=== PATIENT | female | born 1985 | race Caucasian/White ===

== ENCOUNTER 2018-04-03 07:08 | Emergency (ER) | payer MEDICAID ==
--- NOTE | 2018-04-03 07:40 | ED Physician Documentation ---
PD HPI FEMALE - Stated complaint Stated Complaint: SIDE PX - Chief complaint Chief Complaint: Abd Pain - History obtained from History obtained from: Patient, Family - History of Present Illness Timing - onset: How many days ago (7) Timing - duration: Days (7) Timing - details: Gradual onset, Still present Associated symptoms: Back pain, Dysuria, Urinary frequency Similar symptoms before: Diagnosis (pyelo) Recently seen: Not recently seen - Additional information Additional information: 32-year-old female who is recently moved here from [place] has developed urinary urgency frequency and dysuria over the past week. She has been drinking extra fluids in attempt to resolve an infection and despite this she is now developed flank pain and nausea similar to what she has had previously when she has had a kidney infection. Review of Systems Constitutional: denies: Fever Eyes: denies: Decreased vision Ears: denies: Ear pain Nose: denies: Congestion Throat: denies: Sore throat Cardiac: denies: Chest pain / pressure, Palpitations Respiratory: denies: Dyspnea, Cough GI: reports: Nausea. denies: Abdominal Pain, Vomiting, Constipation, Diarrhea : reports: Dysuria, Frequency Skin: denies: Rash Musculoskeletal: reports: Back pain. denies: Neck pain, Extremity pain PD PAST MEDICAL HISTORY - Present Medications Home Medications: Ambulatory Orders Medication Instructions Recorded Confirmed Fluconazole [Diflucan] 150 mg PO ONCE #1 tablet 04/03/18 HYDROcod/ACETAM 5/325 [Council 5/325] 1 - 2 ea PO Q6H PRN #15 tablet 04/03/18 Sulfamethoxazole/Trimethoprim 1 each PO BID #14 tablet 04/03/18 [Sulfamethoxazole-Tmp Ds Tablet] - Allergies Allergies/Adverse Reactions: Allergies Allergy/AdvReac Type Severity Reaction Status Date / Time amoxicillin Allergy Unknown Verified 04/03/18 07:21 PD ED PE NORMAL - Vitals Vital signs reviewed: Yes (hypertensive ) - General General: Alert and oriented X 3, No acute distress, Well developed/nourished - HEENT HEENT: Atraumatic, PERRL, EOMI - Neck Neck: Supple, no meningeal sign - Cardiac Cardiac: RRR, No murmur - Respiratory Respiratory: No respiratory distress, Clear bilaterally - Abdomen Abdomen: Soft, Other (mild LUQ pain ) - Back Back: No spinal TTP, Other (bilateral CVA tenderness worse on the left. ) - Derm Derm: Normal color, Warm and dry, No rash - Extremities Extremities: No deformity, No edema - Neuro Neuro: Alert and oriented X 3, research associate 2-12 intact, No motor deficit, No sensory deficit, Normal speech Eye Opening: Spontaneous Motor: Obeys Commands Verbal: Oriented GCS Score: 15 - Psych Psych: Normal mood, Normal affect Results - Vitals Vitals: Vital Signs - 24 hr 04/03/18 07:22 Temperature 36.7 C Heart Rate 96 Respiratory 12 Rate Blood Pressure 140/88 H O2 Saturation 98 Oxygen O2 Source Room air - Labs Labs: Laboratory Tests 04/03/18 04/03/18 07:20 07:20 Urine Color YELLOW Urine Clarity HAZY Urine pH 6.5 Ur Specific [place] 1.015 1.015 Urine Protein 30 H Urine Glucose (UA) NEGATIVE Urine Ketones NEGATIVE Urine Occult Blood LARGE H Urine Nitrite NEGATIVE Urine Bilirubin NEGATIVE Urine Urobilinogen 0.2 (NORMAL) Ur Leukocyte Esterase MODERATE H Urine RBC TNTC H Urine WBC >25 H Urine WBC Clumps PRESENT Ur Squamous Epith Cells RARE Squamous Urine Bacteria Few Urine Yeast PRESENT Ur Microscopic Review INDICATED Urine Culture Comments INDICATED Urine HCG, Qual NEGATIVE PD MEDICAL DECISION MAKING - ED course Complexity details: reviewed results, re-evaluated patient, considered differential, d/w patient, d/w family ED course: 32 y/o female with flank pain and nausea for 3 days has UTI and she is given IM rocephin and toradal. - Sepsis Event Vital Signs: Vital Signs - 24 hr 04/03/18 07:22 Temperature 36.7 C Heart Rate 96 Respiratory 12 Rate Blood Pressure 140/88 H O2 Saturation 98 Oxygen O2 Source Room air Departure - Departure Disposition: 01 Home, Self Care Clinical Impression: Pyelonephritis, Yeast infection Instructions: ED Kidney Infec Female, ED Vaginal Infec Fungal Kimber[place] Follow-Up: [facility] [Provider Group] Prescriptions: Fluconazole [Diflucan] 150 mg PO ONCE #1 tablet HYDROcod/ACETAM 5/325 [Council 5/325] 1 - 2 ea PO Q6H PRN #15 tablet PRN Reason: Pain Sulfamethoxazole/Trimethoprim [Sulfamethoxazole-Tmp Ds Tablet] 1 each PO BID # 14 tablet Forms: Activity restrictions
[2018-04-03 07:42] LABS: BILIRUBIN,URINE NEGATIVE (NEGATIVE); GLUCOSE, URINE (UA) NEGATIVE (NEGATIVE); KETONES,URINE (UA) NEGATIVE (NEGATIVE); LEUKOCYTE ESTERASE, URINE MODERATE (NEGATIVE); NITRITE,URINE NEGATIVE (NEGATIVE); OCCULT BLOOD,URINE LARGE (NEGATIVE); PH,URINE 6.5 PH (5.0-7.5); PROTEIN,URINE 30 mg/dL (NEGATIVE); UROBILINOGEN,URINE 0.2 (NORMAL) E.U./dL (NORMAL)
[2018-04-03 07:46] LABS: CLARITY,URINE HAZY (CLEAR)
[2018-04-03 07:47] LABS: HCG UR QUAL NEGATIVE
[2018-04-03] MEDS ORDERED: KETOROLAC 60 MG/2 ML VIAL IM STA (07:56)
[2018-04-03] MEDS ORDERED: cefTRIAXone 1 GM VIAL IM STA (07:56)
[2018-04-03] MEDS ORDERED: LIDOCAINE 1% 2 ML VIAL SUBQ ONE (07:56)
[2018-04-03 08:05] LABS: BACTERIA,URINE Few /HPF (None Seen); RBC,URINE TNTC /HPF (0-5); SQUAMOUS EPITHELIAL CELL,UR RARE Squamous (<= Few); WBC CLUMPS,URINE PRESENT; YEAST,URINE PRESENT
[2018-04-03 08:44] VITALS: BP 137/75
== END 2018-04-03 08:42 | disposition home or self-care (01) ==
LOC: ED 07:08
DX: N12 Tubulo-interstitial nephritis, not specified as acute or chronic (principal); B37.9 Candidiasis, unspecified
CPT/HCPCS: 81001; 81003; 81025; 87086; 96372; 99283

== ENCOUNTER 2018-04-14 09:18 | Outpatient (CLI) | payer MEDICAID ==
[2018-04-14 12:49] LABS: BASOPHILS % (AUTO) 0.6 %; EOSINOPHILS # (AUTO) 0.2 10^3/uL (0.0-0.7); EOSINOPHILS % (AUTO) 2.2 %; HGB - HEMOGLOBIN 13.6 g/dL (12.0-16.0); LYMPHOCYTES # (AUTO) 2.9 10^3/uL (1.5-3.5); LYMPHOCYTES % (AUTO) 36.6 %; MEAN CORPUSCULAR HEMOGLOBIN 29.6 pg (27.0-31.0); MEAN CORPUSCULAR HGB CONC 34.3 g/dL (32.0-36.0); MEAN CORPUSCULAR VOLUME 86.4 fL (81.0-99.0); MEAN PLATELET VOLUME 9.6 fL (7.9-10.8); MONOCYTES # (AUTO) 0.3 10^3/uL (0.0-1.0); MONOCYTES % (AUTO) 4.3 %; NEUTROPHILS # (AUTO) 4.5 10^3/uL (1.5-6.6); NEUTROPHILS % (AUTO) 56.3 %; PLT - PLATELET COUNT 258 10^3/uL (130-450); RED BLOOD COUNT 4.61 10^6/uL (4.20-5.40); RED CELL DISTRIBUTION WIDTH 13.5 % (12.0-15.0)
[2018-04-14 12:52] LABS: ALBUMIN 4.4 g/dL (3.2-5.5); ALBUMIN/GLOBULIN RATIO 1.3 (1.0-2.2); BILIRUBIN,TOTAL 0.8 mg/dL (0.2-1.0); CREATININE 0.7 mg/dL (0.4-1.0); TOTAL PROTEIN 7.7 g/dL (6.7-8.2)
[2018-04-14 13:28] LABS: HB2 TOTAL 14.8 g/dL; HEMOGLOBIN A1C 0.85 g/dL; HEMOGLOBIN A1C % 7.4 % (4.6-6.2)
== END 2018-04-14 09:19 | disposition home or self-care (01) ==
LOC: LAB.N 09:18
PROVIDERS: ATTEND Physician Assistant Medical
DX: E11.9 Type 2 diabetes mellitus without complications (principal)
CPT/HCPCS: 36415; 80050; 83036

== ENCOUNTER 2018-07-20 08:07 | Outpatient (CLI) | payer MEDICAID ==
[2018-07-20 19:33] LABS: HB2 TOTAL 14.5 g/dL; HEMOGLOBIN A1C 0.71 g/dL; HEMOGLOBIN A1C % 6.6 % (4.6-6.2)
== END 2018-07-20 23:59 | disposition home or self-care (01) ==
LOC: LAB.N 08:07
PROVIDERS: ATTEND Physician Assistant Medical
DX: E11.9 Type 2 diabetes mellitus without complications (principal)
CPT/HCPCS: 36415; 83036

== ENCOUNTER 2018-08-18 10:25 | Outpatient (CLI) | payer MEDICAID ==
--- NOTE | 2018-08-18 13:08 | Mammography Report ---
Reason: BREAST PAIN, LEFT Procedure Date: 08/18/2018 Accession Number: [id number] / [id number] Procedure: LAURIE - Diagnostic Dig Bilat CPT Code: FULL RESULT: EXAM: Diagnostic Dig Bilat DATE: 08/18/2018 11:38 AM CLINICAL HISTORY: History of intermittent left breast pain mainly between 9:00 and 12:00. Diagnostic examination. TECHNIQUE: Bilateral CC and MLO views were obtained as well as a left laterally exaggerated CC view and a left ML view. Focused breast ultrasound was deployed. COMPARISON: None FINDINGS: The breasts demonstrate heterogeneously dense fibroglandular parenchyma bilaterally. The left breast is mammographically normal with no suspicious architectural distortion, calcifications or mass. In the right lateral breast posteriorly at the 9:00 position approximately 1 cm deep to the skin is a 8 mm partially obscured hypodense ovoid mass with calcifications. On focused breast ultrasound of the same area this appears as a wider than tall approximately 0.9 cm ovoid hypoechoic mass containing a calcification possibly with heterogeneous debris. There is the suggestion of a duct leading towards the skin surface though this is not definitively sonographically demonstrated. The finding probably represents a sebaceous cyst, probably benign. IMPRESSION: Probable benign findings RECOMMENDATION: Recommend diagnostic right breast ultrasound in 6 months. BIRADS CATEGORY 3 STANDARD QUALIFYING STATEMENTS: 1. This examination was not reviewed with the aid of Computer-Aided Detection (CAD). 2. A negative or benign imaging report should not delay biopsy if clinically suspicious findings are present. Consider surgical consultation if warrented. More than 5% of cancers are not identified by imaging. 3. Dense breasts may obscure an underlying neoplasm. 4. This examination was reviewed with the aid of 3D imaging (tomography).
== END 2018-08-18 10:26 | disposition home or self-care (01) ==
LOC: DI 10:25
PROVIDERS: ATTEND Physician Assistant Medical
DX: N64.4 Mastodynia (principal)
CPT/HCPCS: 76642; 77066

== ENCOUNTER 2018-09-22 11:15 | Emergency (ER) | payer MEDICAID ==
[2018-09-22] MEDS ORDERED: DEXAMETHASONE 10 MG/ML VIAL PO STA (13:09)
[2018-09-22] MEDS ORDERED: IBUPROFEN 800 MG TABLET PO STA (13:09)
[2018-09-22 14:15] VITALS: BP 138/96
--- NOTE | 2018-09-22 14:39 | ED Physician Documentation ---
PD HPI NECK PAIN - Stated complaint Stated Complaint: NECK/SHOULDER PAIN - Chief complaint Chief Complaint: Ext Problem - History obtained from History obtained from: Patient - History of Present Illness Timing - onset: Yesterday Timing - details: Still present Location: Lower, Left Quality: Pain, Spasm Similar symptoms before: Has not had sx before - Additional information Additional information: The patient is a 33-year-old female who presents with "a kink in my neck" with pain radiating to her left shoulder. Her symptoms started yesterday, and persisted today. She denies any recent traumatic injury. She denies headache, numbness or weakness, cough or shortness of breath. She denies history of similar symptoms in the past. She is right-hand dominant. Review of Systems Constitutional: denies: Fever Ears: denies: Tinnitus/ringing Nose: denies: Congestion Throat: denies: Sore throat Cardiac: denies: Chest pain / pressure Respiratory: denies: Dyspnea, Cough GI: denies: Abdominal Pain, Nausea, Vomiting : denies: Dysuria Skin: denies: Rash Musculoskeletal: reports: Neck pain. denies: Back pain Neurologic: denies: Focal weakness, Numbness, Headache PD PAST MEDICAL HISTORY - Past Medical History Past Medical History: No Respiratory: Asthma Endocrine/Autoimmune: Type 2 diabetes - Past Surgical History Past Surgical History: Yes /[employer]: Tubal ligation HEENT: Tonsil/Adenoidectomy - Present Medications Home Medications: Ambulatory Orders Medication Instructions Recorded Confirmed Fluconazole [Diflucan] 150 mg PO ONCE #1 tablet 04/03/18 HYDROcod/ACETAM 5/325 [[place] 5/325] 1 - 2 ea PO Q6H PRN #15 tablet 04/03/18 Sulfamethoxazole/Trimethoprim 1 each PO BID #14 tablet 04/03/18 [Sulfamethoxazole-Tmp Ds Tablet] Cyclobenzaprine [Flexeril] 10 mg PO TID PRN #20 tablet 09/22/18 Naproxen [Naprosyn] 500 mg PO BID #30 tablet 09/22/18 - Allergies Allergies/Adverse Reactions: Allergies Allergy/AdvReac Type Severity Reaction Status Date / Time amoxicillin Allergy Unknown Verified 09/22/18 11:34 - Social History Does the pt smoke?: No Smoking Status: Never smoker Does the pt drink ETOH?: No Does the pt have substance abuse?: Yes Substance Use and Type: Marijuana - Immunizations Immunizations are current?: Yes PD ED PE NORMAL - Vitals Vital signs reviewed: Yes (Initially hypertensive.) - General General: Alert and oriented X 3, Well developed/nourished, Other (Holding head stiffly.) - HEENT HEENT: Atraumatic, EOMI, Pharynx benign - Neck Neck: Supple, no meningeal sign, No bony TTP, No adenopathy, Other (There is tenderness to palpation along the paracervical musculature, particularly on the left. There is no tenderness to palpation along the spinous processes.) - Cardiac Cardiac: RRR - Respiratory Respiratory: No respiratory distress, Clear bilaterally - Abdomen Abdomen: Soft, Non tender - Back Back: No CVA TTP, No spinal TTP - Derm Derm: No rash - Extremities Extremities: No edema, No calf tenderness / cord - Neuro Neuro: Alert and oriented X 3, No motor deficit, No sensory deficit Results - Vitals Vitals: Oxygen O2 Source Room air PD MEDICAL DECISION MAKING - ED course Complexity details: re-evaluated patient, considered differential, d/w patient, d/w family ED course: The patient's presentation is most consistent with cervical muscle strain. Her presentation does not suggest meningitis or cervical spine injury. Treatment in the emergency department included administration of ibuprofen 800 mg orally and dexamethasone 10 mg orally. She is being discharged with prescriptions for Naprosyn and for Flexeril. I discussed with her and her family the expected course of illness, symptomatic treatment and outpatient follow-up, as well as potentially worrisome signs or symptoms that should prompt reevaluation in the emergency department. Departure - Departure Disposition: 01 Home, Self Care Clinical Impression: Cervical muscle strain Qualifiers: Encounter type: initial encounter Qualified Code(s): S16.1XXA - Strain of muscle, fascia and tendon at neck level, initial encounter Condition: Stable Instructions: ED Neck Pain No Trauma, ED Sprain Strain Neck Follow-Up: Gonzales Hernandez PA-C [Primary Care Provider] - Prescriptions: Cyclobenzaprine [Flexeril] 10 mg PO TID PRN #20 tablet PRN Reason: Spasms Naproxen [Naprosyn] 500 mg PO BID #30 tablet Comments: Apply ice pack to the sore areas intermittently for the next 3 days. You can use Naprosyn as prescribed if needed for pain. You can use Flexeril as prescribed if needed for muscle spasms. Let pain be your guide to activity level. Follow-up with your primary physician within 1-2 weeks. Return to the emergency department if you develop increasing pain, numbness or weakness, or otherwise worsening symptoms. Forms: Activity restrictions Discharge Date/Time: 09/22/18 15:20
== END 2018-09-22 15:20 | disposition home or self-care (01) ==
LOC: ED 11:15
DX: S16.1XXA Strain of muscle, fascia and tendon at neck level, initial encounter (principal); X58.XXXA Exposure to other specified factors, initial encounter; M25.512 Pain in left shoulder; E11.9 Type 2 diabetes mellitus without complications
CPT/HCPCS: 99283; A9270

== ENCOUNTER 2018-10-06 05:28 | Outpatient (CLI) | payer MEDICAID ==
[2018-10-06 19:29] LABS: BILIRUBIN,URINE NEGATIVE (NEGATIVE); GLUCOSE, URINE (UA) NEGATIVE (NEGATIVE); KETONES,URINE (UA) NEGATIVE (NEGATIVE); LEUKOCYTE ESTERASE, URINE NEGATIVE (NEGATIVE); NITRITE,URINE NEGATIVE (NEGATIVE); OCCULT BLOOD,URINE LARGE (NEGATIVE); PH,URINE 5.5 PH (5.0-7.5); PROTEIN,URINE NEGATIVE (NEGATIVE); UROBILINOGEN,URINE 0.2 (NORMAL) E.U./dL (NORMAL)
[2018-10-06 19:35] LABS: CLARITY,URINE CLEAR (CLEAR)
[2018-10-06 19:36] LABS: BACTERIA,URINE None Seen /HPF (None Seen); RBC,URINE 0-5 /HPF (0-5); SQUAMOUS EPITHELIAL CELL,UR MANY Squamous (<= Few)
== END 2018-10-06 23:59 ==
LOC: LAB.R 05:28
PROVIDERS: ATTEND Nurse Practitioner
DX: R30.0 Dysuria (principal)
CPT/HCPCS: 81001; 87086

== ENCOUNTER 2018-11-24 10:23 | Outpatient (CLI) | payer MEDICAID ==
--- NOTE | 2018-11-24 13:41 | Ultrasound Report ---
Reason: BREAST PAIN, LEFT Procedure Date: 11/24/2018 Accession Number: [id number] / [id number] Procedure: US - Breast Unilateral Limited CPT Code: FULL RESULT: EXAM: Breast Unilateral Limited DATE: 11/24/2018 11:45 AM CLINICAL HISTORY: BREAST PAIN, LEFT. Pain intermittently involves different areas of the breast. COMPARISON: Mammogram 08/18/2018. TECHNIQUE: Ultrasound was performed of the entire left breast. Color Doppler was employed as appropriate. FINDINGS: There is no cystic or solid mass, abnormal fluid collection, dilated ducts, architectural distortion, posterior shadowing, or other abnormality. IMPRESSION: Negative left breast ultrasound. RECOMMENDATION: Clinical follow-up of left breast pain. Follow-up ultrasound of the right breast as previously described 08/18/2018 BIRADS CATEGORY 1: Negative RADIA
== END 2018-11-24 10:24 | disposition home or self-care (01) ==
LOC: DI 10:23
PROVIDERS: ATTEND Nurse Practitioner Obstetrics & Gynecology
DX: N64.4 Mastodynia (principal)
CPT/HCPCS: 76642